=== PATIENT | male | born 1940 | race Caucasian/White ===

== ENCOUNTER 2020-12-19 09:11 | Emergency (ER) | payer MEDICARE, SELFPAY ==
[2020-12-19] VITALS (8 sets, daily range): BP systolic 135–167; BP diastolic 56–69; PULSE 57–62; RESP 14–19; TEMP 36.6; O2SAT 99–100
--- NOTE | ~2020-12-19 | XR_ITS ---
EXAMINATION: XR ribs LT 2V w CXR 2V EXAM DATE: 12/19/2020 10:48 INDICATION: Fall last p.m., Lt rib pain posterior . Initial encounter. TECHNIQUE: Frontal projection of the upper left ribs, frontal projection of the lower left ribs, obli que projection of the left ribs, frontal and lateral chest x-ray(s) for interpretation. There is no prior study for comparison. FINDINGS: Acute closed posttraumatic nondisplaced left 4th rib fracture posterolaterally. There is no soft tissue abnormality seen. Small bilateral pleural effusions. No confluent consolidation or pneum othorax suspected. Cardiomediastinal silhouette is normal. There is moderate left glenohumeral joint , severe acromioclavicular joint primary osteoarthritis. IMPRESSION: 1. Acute left 4th rib fracture. 2. Small pleural effusions. Reviewed, dictated and finalized at location A.
--- NOTE | ~2020-12-19 | XR_ITS ---
EXAMINATION: XR thoracolumbar EXAM DATE: 12/19/2020 10:49 INDICATION: fall last p.m; post mid Lt rib pain . TECHNIQUE: Frontal and lateral projections thoracolumbar spine (4 images). There is no prior study for comparison. FINDINGS: Bridging thoracolumbar endplate osteophytes. There are no acute thoracolumbar fractures id entified. Vertebral body heights appear maintained. IMPRESSION: Thoracolumbar bridging osteophytes. No acute fracture. Reviewed, dictated and finalized at location A.
--- NOTE | 2020-12-19 11:38 | ED.FALL ---
HPI - Fall General Chief Complaint: Fall Stated Complaint: FALL Time Seen by Provider: 12/19/20 09:23 History of Present Illness HPI Narrative: Patient is a 80-year-old male who presents ER for evaluation after an unwitnessed fall that occurred last night. Patient reports he did not bed when he fell and struck his back. Did not strike his head or lose consciousness. No fevers or chills or sweats. Denies chest pressure. Patient is currently rehabbing after a fall that he had had [place] a [place] where he suffered multiple rib fractures on the right side and pneumothorax. Patient reports pain to the left posterior back over the rib cage. No radiation. No difficulty breathing. Related Data Home Medications Medication Instructions Recorded Confirmed Humalog KwikPen Insulin 12/19/20 amiodarone 200 mg PO DAILY 12/19/20 apixaban 5 mg PO BID 12/19/20 atorvastatin 40 mg PO HS 12/19/20 cholecalciferol (vitamin D3) 1,250 mcg PO WEEKLY 12/19/20 famotidine 20 mg PO HS 12/19/20 fluoxetine 20 mg PO DAILY 12/19/20 insulin glargine 30 unit SUBCUT HS 12/19/20 levetiracetam [Keppra] 500 mg PO BID 12/19/20 megestrol 400 mg PO DAILY 12/19/20 melatonin 3 mg PO HS 12/19/20 metoprolol succinate 25 mg PO DAILY 12/19/20 multivitamin with minerals [Tim tablet PO 12/19/20 Multivitamins/Minerals] sennosides-docusate sodium 1 tab-cap PO HS 12/19/20 Allergies Allergy/AdvReac Type Severity Reaction Status Date / Time temazepam Allergy Unknown Verified 12/19/20 09:53 Review of Systems Cardiovascular: Cardiovascular: Denies chest pain and Denies radiating jaw, neck or arm pain Respiratory: Respiratory: Denies cough, Denies dyspnea and Denies wheezing Musculoskeletal: Musculoskeletal: Reports back pain, Denies arthralgias and Denies joint swelling [facility] Past Medical History Medical History (Updated 12/19/20 @ 11:54 by Sampson Hurst MD) Acid reflux disease with ulcer Atrial fibrillation Depression Diabetes Hyperlipidemia Pneumothorax Surgical History Surgical History (Updated 12/19/20 @ 11:51 by Sampson Hurst MD) History of chest tube placement Social History Social History (Updated 12/19/20 @ 11:52 by Sampson Hurst MD) Social History: Currently in rehab at [facility]. Exam Narrative: Exam Narrative: GENERAL: Well-appearing, well-nourished, and in no acute distress. HEAD: Normocephalic, atraumatic. CHEST: Clear to auscultation. No respiratory distress. HEART: Regular rate and rhythm. Normal peripheral pulses. ABDOMEN: Soft, nontender, nondistended. Back: No midline tenderness of the thoracic or lumbar spine. There is bruising left paraspinal musculature over the T10 ribs. EXTREMITIES: Normal range of motion. No edema. SKIN: Warm, dry, no rash. NEURO: Alert and oriented x3. Course Course Emergency Course: Patient and son informed of results. Discharge back to long-term. Vital Signs Vital signs: Vital Signs Temperature 97.8 F 12/19/20 09:11 Pulse Rate 60 12/19/20 09:11 Respiratory Rate 16 12/19/20 09:11 Blood Pressure 159/61 H 12/19/20 09:11 Pulse Oximetry 100 12/19/20 09:11 Temperature 97.8 F 12/19/20 09:11 Pulse Rate 60 12/19/20 09:11 Respiratory Rate 16 12/19/20 09:11 Blood Pressure 159/61 H 12/19/20 09:11 Pulse Oximetry 100 12/19/20 09:11 MDM - Fall Imaging Data Radiologist's impression: ITS Impressions Ribs w/Chest X-Ray 12/19/20 10:53 IMPRESSION: 1. Acute left 4th rib fracture. 2. Small pleural effusions. Thoracolumbar Spine 12/19/20 10:56 IMPRESSION: Thoracolumbar bridging osteophytes. No acute fracture. Discharge Plan Discharge Clinical Impression: Closed fracture of rib of left side Patient Disposition: Home, Self-Care Condition: Stable Instructions: Rib Fracture (ED) Additional Instructions: Return to the ER if you have chest pain or shortness of breath, yo
== END 2020-12-19 12:30 | disposition home or self-care (01) ==
PROVIDERS: Emergency Provider Emergency Medicine
DX: S22.32XA Fracture of one rib, left side, initial encounter for closed fracture (principal); K21.9 Gastro-esophageal reflux disease without esophagitis; I48.91 Unspecified atrial fibrillation; E11.9 Type 2 diabetes mellitus without complications; E78.5 Hyperlipidemia, unspecified; Z79.01 Long term (current) use of anticoagulants; Z79.4 Long term (current) use of insulin; W19.XXXA Unspecified fall, initial encounter
CPT/HCPCS: 71046; 71100; 72080; 99284